=== PATIENT | female | born 1980 | race Caucasian/White ===

== ENCOUNTER 2017-09-01 17:12 | Emergency (ER) | payer MEDICAID ==
[~2017-09-01] VITALS: Ht 162.6 cm; Wt 81.8 kg
[~2017-09-01 17:12] MED LIST: CEPHALEXIN500 M1 PO; CLONIDINE0.1 MG PO; LEVOXYL0.05 MG PO; LORTAB 5/500 501 TAB PO; MELATONIN5 M2 PO; NAPROSYN500 MG PO; NORCO 325 MG-51 TAB PO; PEN-VEE K500 MG PO; ROBAXIN 50500 MG/TAB PO; ULTRAM 50MG TAB50 MG PO
[2017-09-01 17:17] VITALS: TEMP 98.8
[2017-09-01] MEDS ORDERED: AMOXICILLIN 8751 TAB PO (18:36)
[2017-09-01] MEDS ORDERED: NORCO 325 MG-51 TAB PO (18:37)
[2017-09-01 19:32] VITALS: BP 172/110
[2017-09-01] MEDS ORDERED: PRINIVIL10 MG PO (19:35)
[2017-09-01 20:04] VITALS: PULSE 100
== END 2017-09-01 20:05 | disposition home or self-care (01) ==
LOC: COL.ER 17:12
DX: K03.81 Cracked tooth (principal); K04.7 Periapical abscess without sinus; I10 Essential (primary) hypertension

== ENCOUNTER 2019-08-17 16:25 | Emergency (ER) | payer SELFPAY ==
[~2019-08-17] VITALS: Ht 165.1 cm; Wt 81.8 kg
[~2019-08-17 16:25] MED LIST changes: +AMOXICILLIN 8751 TAB PO; +PRINIVIL10 MG PO
[2019-08-17 16:44] VITALS: BP 167/94; TEMP 96.7
[2019-08-17] MEDS ORDERED: AMOXICILLIN 8751 TAB PO (18:42)
[2019-08-17 19:06] VITALS: PULSE 87
== END 2019-08-17 19:06 | disposition home or self-care (01) ==
LOC: COL.ER 16:25
DX: S02.5XXA Fracture of tooth (traumatic), initial encounter for closed fracture (principal); K04.7 Periapical abscess without sinus; I10 Essential (primary) hypertension; X58.XXXA Exposure to other specified factors, initial encounter